=== PATIENT | male | born 1970 | race African-American/Black ===

== ENCOUNTER 2019-01-23 13:03 | Emergency (ER) | payer BC ==
[2019-01-23] MEDS ORDERED: DIPHENHYDRAMINE HCL 50 MG/ML VIAL IV ONE (13:23)
[2019-01-23] MEDS ORDERED: PROCHLORPERAZINE EDISYLATE INJ 10 MG/2 ML VIAL IV ONE (13:23)
--- NOTE | 2019-01-23 13:25 | ER Document Report ---
ED Medical Screen (RME) - General Chief Complaint: High Blood Pressure Stated Complaint: HEADACHE Time Seen by Provider: 01/23/19 13:14 TRAVEL OUTSIDE OF THE [place] IN LAST 30 DAYS: No - HPI Notes: 01/23/19 13:23 Patient is a 48-year-old male with a history of hypertension who presents the emergency department complaining of having a headache for the past 6 days near his right eye. Patient has not had any visual changes or light sensitivity. Patient states that he has not had headaches similar to this in the past. No significant cardiopulmonary medical history. Denies drug allergies. Denies any fever, head injury, neck pain, changes in vision/speech/mentation/hearing, URI, sore throat, chest pain, palpitations, syncope, cough, shortness of breath, wheeze, dyspnea, abdominal pain, nausea/vomiting/diarrhea, urinary retention, dysuria, hematuria, loss of control of bowel or bladder, numbness/tingling, saddle anesthesia, muscle paralysis/weakness, or rash. I have treated and performed a rapid initial assessment of this patient. A comprehensive ED assessment and evaluation of the patient, analysis of test results and completion of medical decision making process will be conducted by additional ED providers. PHYSICAL EXAMINATION: GENERAL: Well-appearing, well-nourished and in no acute distress. A&Ox4. Answers questions appropriately. Eyes: PERRLA, EOMI, no nystagmus. LUNGS: Breath sounds clear to auscultation bilaterally and equal. No wheezes rales or rhonchi. HEART: Regular rate and rhythm without murmurs, rubs, gallops. Extremities: No cyanosis, clubbing, or edema b/l. NEUROLOGICAL: Normal speech, normal gait. Cranial nerves grossly intact PSYCH: Normal mood, normal affect. - Related Data Allergies/Adverse Reactions: No Known Allergies Allergy (Verified 01/23/19 13:03) Past Medical History - Past Medical History Cardiac Medical History: Reports: Hx Hypercholesterolemia, Hx Hypertension Renal/ Medical History: Denies: Hx Peritoneal Dialysis Past Surgical History: Reports: Hx Orthopedic Surgery Physical Exam - Vital signs Vitals: Temp Pulse Resp BP Pulse Ox 98.2 F 57 L 18 153/77 H 97 01/23/19 13:08 01/23/19 13:08 01/23/19 13:08 01/23/19 13:08 01/23/19 13:08 Course - Vital Signs Vital signs: Temp Pulse Resp BP Pulse Ox 98.2 F 57 L 18 153/77 H 97 01/23/19 13:08 01/23/19 13:08 01/23/19 13:08 01/23/19 13:08 01/23/19 13:08
--- NOTE | 2019-01-23 14:01 | RADIOLOGY REPORT (SQ) ---
EXAM DESCRIPTION: CT HEAD WITHOUT COMPLETED DATE/TIME: 01/23/2019 1:52 pm REASON FOR STUDY: PEDERSON COMPARISON: None. TECHNIQUE: Axial images acquired through the brain without intravenous contrast. Images reviewed wi th bone, brain and subdural windows. Additional sagittal and coronal reconstructions were generated. Images stored on PACS. All CT scanners at this facility use dose modulation, iterative reconstruction, and/or weight based d osing when appropriate to reduce radiation dose to as low as reasonably achievable (ALARA). [facility]: Dose Right [facility]: CareDose [facility]: Dose Right [facility]: Teradose 4D [facility]: [employer] RADIATION DOSE: CT Rad equipment meets quality standard of care and radiation dose reduction techniq ues were employed. CTDIvol: 53.2 mGy. DLP: 1044 mGy-cm. mGy. LIMITATIONS: None. FINDINGS: VENTRICLES: Normal size and contour. CEREBRUM: No masses. No hemorrhage. No midline shift. No evidence for acute infarction. Normal gra y/white matter differentiation. No areas of low density in the white matter. CEREBELLUM: No masses. No hemorrhage. No alteration of density. No evidence for acute infarction. EXTRAAXIAL SPACES: No fluid collections. No masses. ORBITS AND GLOBE: No intra- or extraconal masses. Normal contour of globe without masses. CALVARIUM: No fracture. PARANASAL SINUSES: Polypoid mucosal thickening within the bilateral maxillary sinuses. Remaining sin uses and mastoid air cells are clear. SOFT TISSUES: No mass or hematoma. OTHER: No other significant finding. IMPRESSION: No evidence of acute intracranial process. Polypoid mucosal thickening within the bilateral maxillary sinuses. EVIDENCE OF ACUTE STROKE: NO. COMMENT: Quality ID # [id number]: Final reports with documentation of one or more dose reduction techniques (e.g., Automated exposure control, adjustment of the mA and/or kV according to patient size, use of iterative reconstruction technique) TECHNICAL DOCUMENTATION: JOB ID: [id number]- All Rights Reserved Reading location - IP/workstation name: [email or web address]
--- NOTE | 2019-01-23 15:09 | ER Document Report ---
ED General - General Chief Complaint: High Blood Pressure Stated Complaint: HEADACHE Time Seen by Provider: 01/23/19 13:14 Mode of Arrival: Ambulatory Information source: Patient TRAVEL OUTSIDE OF THE [place] IN LAST 30 DAYS: No - HPI Patient complains to provider of: Right-sided headache and elevated blood pressure Onset: Other Onset/Duration: Constant Quality of pain: Throbbing Severity: Mild Pain Level: 2 Associated symptoms: None Exacerbated by: Denies Relieved by: Denies Similar symptoms previously: No Recently seen / treated by doctor: No Notes: 48-year-old -Luxembourger male coming in today with chief complaint of right retro-orbital headache for the past 6 days. Not responding to the usual [id number] medications. History of headaches when he was younger. Does not have any fevers. Not have any visual changes. No nausea vomiting. No dizziness or vertigo. No history of head trauma. Patient notes that the symptoms began behind the right eye are atypical for his headaches in the past. Also notes that when he was at the dentist yesterday for routine deep cleaning, they told him that his blood pressure was elevated. He is not having any chest pain, shortness of breath, palpitations with this. No previous diagnosis of hypertension. - Related Data Allergies/Adverse Reactions: No Known Allergies Allergy (Verified 01/23/19 13:03) Past Medical History - General Information source: Patient - Social History Smoking Status: Former Smoker Family History: Reviewed & Not Pertinent Patient has suicidal ideation: No Patient has homicidal ideation: No - Past Medical History Cardiac Medical History: Reports: Hx Hypercholesterolemia, Hx Hypertension Renal/ Medical History: Denies: Hx Peritoneal Dialysis Past Surgical History: Reports: Hx Orthopedic Surgery Review of Systems - Review of Systems Notes: Constitutional: No fevers. No chills. EENT: No eye redness. No eye pain. No ear pain. No sore throat. Cardiovascular: No chest pain. No palpitations. Respiratory: No cough. No shortness of breath. No respiratory distress. Gastrointestinal: No abdominal pain. No nausea, vomiting, or diarrhea. Genitourinary: Atraumatic. No lesions. No pain. No discharge. Musculoskeletal: Atraumatic. No swelling. No deformities. Skin: No rash or lesions. Lymphatic: No swollen lymph nodes. Neurologic: + FOR headache. No syncope. Psychiatric: No suicidal or homicidal ideation. Physical Exam - Vital signs Vitals: Temp Pulse Resp BP Pulse Ox 98.2 F 57 L 18 153/77 H 97 01/23/19 13:08 01/23/19 13:08 01/23/19 13:08 01/23/19 13:08 01/23/19 13:08 - Notes Notes: General: Well-developed, well-nourished. In no acute distress. Non-toxic appearing. Cardiac: Well-perfused. Regular rate and rhythm. No murmurs, rubs, or gallops. Pulmonary: No respiratory distress. No cyanosis. Bilateral lung Cason are clear to auscultation. Abdominal: Non-distended. Non-rigid. Bowels sounds are present in all four quadrants. No guarding or rebound. HEENT: Head is atraumatic. Conjunctivae not reddened. No tearing. PERRL. EOMI. Orbits atraumatic. No periorbital swelling or erythema. Oropharynx is without erythema, swelling, or exudates. Funduscopic exam reveals no optic disc cupping. No hemorrhaging. No nicking. Neck: Supple. No adenopathy. No meningismus. Dermatologic: Warm with good turgor. No rash. Atraumatic. Chest: Atraumatic. No chest wall tenderness to palpation. Musculoskeletal: Moves all extremities well. No range of motion deficits. no muscular or joint tenderness. No paraspinal muscle tenderness. no midline spinal tenderness or step-off. Genitourinary: Examination deferred Neurologic: No gross neurologic deficits. Psychiatric: Normal mood. Course - Re-evaluation Re-evalutation: 01/23/19 15:09 Patient's headache is completely resolved with Benadryl and Compazine IV. CT scan of his brain without contrast is negative. His blood pressure on intake was 153/77, which, while elevated is not in need of emergent treatment. Patient tells me that he has a primary care physician in appointment set up for next Monday. I will send him home with a prescription for REGLAN if he gets another headache. I will let his doctor recheck his blood pressure and determine at that time if he is a candidate for blood pressure treatment. We will discharge him home at this time. He is aware that a negative CAT scan in the emergency department is not the final evaluation OF headaches. He is encouraged if he gets more worsening headaches or differing symptoms he can return here at any time for reevaluation. He is encouraged to follow-up with his primary care doctor for these headaches and if they persist potentially to get more workup for neurologic consultation. 01/23/19 15:18 - Vital Signs Vital signs: Temp Pulse Resp BP Pulse Ox 98.2 F 57 L 18 153/77 H 97 01/23/19 13:08 01/23/19 13:08 01/23/19 13:08 01/23/19 13:08 01/23/19 13:08 Discharge - Discharge Clinical Impression: Elevated blood pressure reading Headache Qualifiers: Headache type: unspecified Headache chronicity pattern: unspecified pattern Intractability: not intractable Qualified Code(s): R51 - Headache Condition: Good Instructions: High Blood Pressure ([facility]), Headache ([facility]) Additional Instructions: Your headache is resolved at this time. If your headache should come back, he may use the prescription that was given if necessary. Always try Tylenol or ibuprofen before taking a prescription headache medication. Your CAT scan is normal at this time but if your headaches persist you are encouraged to follow- up with your primary care doctor for further evaluation and treatment of your headaches. Your blood pressure today of 153/77 is elevated but does not require emergent treatment. I would like you to go home and get plenty of rest and have your doctor recheck your blood pressure at your scheduled appointment next Monday. If you are still continuing to be elevated, you may need blood pressure medications. I will let your primary care doctor decide that. Prescriptions: Metoclopramide HCl [Reglan 10 mg Tablet] 1 tab PO Q6HP PRN #20 tablet PRN Reason: Forms: Elevated Blood Pressure Referrals: PRIMARY CARE DOCTOR, YOUR [Other] - 02/01/19
[2019-01-23 15:54] VITALS: BP 126/74
== END 2019-01-23 15:54 | disposition home or self-care (01) ==
LOC: ER 13:03
DX: R51 Headache (principal); R03.0 Elevated blood-pressure reading, without diagnosis of hypertension; Z87.891 Personal history of nicotine dependence
CPT/HCPCS: 99284; 96374; 96375; 70450; J1200; J0780